=== PATIENT | female | born 1985 | race Caucasian/White ===

== ENCOUNTER 2018-12-04 01:02 | Inpatient (IN) | payer OTHER ==
[2018-12-04] VITALS (7 sets, daily range): BP systolic 112–121; BP diastolic 58–70
[~2018-12-04] VITALS: Ht 157.5 cm; Wt 78.5 kg
[2018-12-04] MEDS ORDERED: PRENTAB9 PO (01:11)
[2018-12-04] MEDS ORDERED: LR 1,000 ML IV SCH (01:44)
[2018-12-04] MEDS ORDERED: LACTATED RINGER'S 1000 ML IV STA (01:44)
[2018-12-04] MEDS ORDERED: OXYTOCIN 30 UNITS IN 0.9% NaCl 500ML IV BAG (J2590) As Ordered ONE ×2 (01:54→02:32)
[2018-12-04 02:05] LABS: HEMATOCRIT 32.6 % (36.0-47.0); HEMOGLOBIN 10.3 g/dl (12.0-15.5); MEAN CORPUSCULAR HEMOGLOBIN 26.1 pg (27.0-33.0); MEAN CORPUSCULAR HGB CONC 31.6 g/dl (32.0-36.5); MEAN CORPUSCULAR VOLUME 82.5 fl (80.0-96.0); PLATELET COUNT, AUTOMATED 255 10^3/uL (150-450); RED BLOOD COUNT 3.95 10^6/uL (4.00-5.40); WHITE BLOOD COUNT 18.5 10^3/uL (4.0-10.0)
[2018-12-04 02:20] LABS: EOSINOPHILS 1 % (0-5); LYMPHOCYTES 35 % (16-52); MONOCYTES 10 % (0-8); NEUTROPHILS 54 % (35-75); PLATELET CLUMPS SMALL AMT; PLATELET ESTIMATE NORMAL (NORMAL)
[2018-12-04 02:23] LABS: ANISOCYTOSIS 1+; HYPOCHROMASIA 1+
[2018-12-04] MEDS ORDERED: RHOGAM 300 MCG (1500 IU) INJ (J2790) IM SCH (02:45)
[2018-12-04] MEDS ORDERED: MEASLES,MUMPS,RUBELLA VACCINE INJ (MMR-II) (90707) SC SCH (02:45)
[2018-12-04] MEDS ORDERED: ACETAMINOPHEN TAB 650MG DOSE (2X325MG) PO PRN (02:45)
[2018-12-04] MEDS ORDERED: METHYLERGONOVINE MALEATE 0.2 MG TAB PO PRN (02:45)
[2018-12-04] MEDS ORDERED: DOCUSATE SODIUM 100 MG CAP PO PRN (02:45)
[2018-12-04] MEDS ORDERED: IBUPROFEN 600 MG TAB PO PRN (02:45)
--- NOTE | 2018-12-04 02:56 | NUR ---
[facility] Obstetrical History & Physical General Date of Admission December 04, 2018 at 0140 History of Present Illness Alex is a32 y/o at 40+5 via L/1TUS presenting with strong painful ctx and vaginal pressure. was uncomplicated. GBS NEG. Chief Complaint: Contractions, term Information Provided By: Patient Care Care: Good Care Dating Final EDC by: LMP, 1st trimester (US) Past Medical History Past Obstetrical History : Type of Delivery: Spontaneous Vaginal Del. Oct 2014 8lbs TEST [employer]ATION [employer]CHITECT History: No pertinent history Past Medical History Surgical History: laparoscopic ovarian cystectomy Family History Significant Family History: sister w/ hemophilia Social History Marital Status: Family situation: Spouse/partner home Psychosocial History: No pertinent psych hx; reports some PPD after first daughter * Smoker: non-smoker Alcohol: Denies Drugs: denies Abuse Violence Screening Have you been hit/kicked/slapp: No Have you been sexually assault: No Imunizations Tdap status: current Influenza Status: current Allergies Coded Allergies: NKDA Physical Examination Physical Examination GENERAL: Alert and oriented times three. VSS/AF CV: RRR PUL: CTAB ABDOMEN: Gravid and non-tender to touch; relaxed uterine resting tone EXTREMITIES: No edema. No clonus. FHR: 135 baseline; mod variability; + accelerations; occasional variable decelerations TOCO: q1-3, strong intensity via palp SCE: C/C w/ BBOW Laboratory Data pending in [facility] (not drawn until after delivery) Urine Culture: No Growth Pertinent Laboratoy Data Blood Type: AB+ RBC Antibody Screen: Negative HIV: Negative Hepatitis B: Negative Hepatitis C: Unknown Rapid Plasma Reagin: Nonreactive Rubella: Immune Varicella: Immune Chlamydia/Gonorrhea: Negative Group B Streptococcus: Negative Quad Screen Test: Declined Cystic Fibrosis: Declined 1hr: 137; 3hr: 89/158/114/80 Assessment/Plan 32 y/o at 40+5 via L/1TUS. Second stage labor; will delay active pushing for anesthesia consult. CAT I FHR w/ intermittent CAT II for variable de celerations. GBS NEG. I anticipate soon, may have anesthesia consult as desired. Pt has been counseled/consented for vaginal delivery and admission. She agrees with plan. Safe to proceed; room prepared and nursing staff present in anticipation for delivery.
[2018-12-04] MEDS: ACETAMINOPHEN 500 MG TAB PO PRN ×3 (02:57→23:34)
--- NOTE | 2018-12-04 03:03 | NUR ---
[facility] DELIVERY SUMMARY Called to BS at 0145 s/p SROM clear fluid and strong maternal bearing down efforts. FHR 135 baseline. Start active pushing and vertex delivered after two pushes direct OA with restitution to ROT. L anterior shoulder delivered followed by posterior shoulder and corpus with ease. NBN placed on mat ernal abdomen for bonding and initial assessments. Cord double clamped and cut by FOB following cessation of pulsation. Placenta delivered Nadja with gentle cord traction; placenta inspected and was found to be intact w/ central cord insertion. Oxytocin 20u adm via IV bolus for active management of the third stage. Vagina, cervix and perineum inspected for lacerations; bilateral labial lacerations present and repaired in usual fashion using 3-0 and 4-0 suture under local anesthesia. Excellent re-approximation and hemostasis following repair. Mom and babe stable and bonding when I left the room. : 0152, female PLACENTA: 0155 ANESTHESIA: None WEIGHT: 8lb 5oz (3720g) APGARS: 8/9 EBL: 300 COUNTS: correct x2
[2018-12-04] MEDS ORDERED: OXYTOCIN DRIP 30 UNITS in APPROPRIATE DILUENT 1 EA IV SCH ×5 (04:15→04:30)
[2018-12-04] MEDS ORDERED: LIDOCAINE 1% MDV 20ML VIAL As Ordered ONE (05:50)
--- NOTE | 2018-12-04 07:40 | NUR ---
[facility] Progress Note: S: Alex is a 32 y/o G2 now P2002 s/p precipitous vaginal delivery early this morning. She reports feeling tired this morning with slight vaginal pain. She reports diminishing lochia. Bonding well. Denies questions/concerns for CNM at this time. O: VSS/AF GEN: A&Ox3 CV: RRR PUL: CTAB BREAST: soft; no lactogenesis II, nipples intact ABD/UTERUS: NTTP; FF@U-3 LOCH: scant, rubra VAG: lacerations approximated with suture; min edema EXT: neg homans A/P: Alex is a 32 y/o G2 now P2002 s/p precipitous vaginal delivery early this am. Feeding/bonding well. Up ad kerry. Urinating. Karime regular diet. Will provide r outine pp care today and assistance as needed. PRN meds as needed and ice to perineum. I anticipate DC home tomorrow.
[2018-12-04] MEDS: IBUPROFEN 800 MG TAB PO PRN ×2 (10:24→20:03)
[2018-12-04] MEDS: PRENATAL VITAMINS CHEWABLE TABLET PO SCH (10:24)
[2018-12-04] MEDS: DIBUCAINE 1% OINTMENT 30GM TOP PRN ×2 (14:17→20:02)
[2018-12-05] MEDS: IBUPROFEN 800 MG TAB PO PRN (04:43)
[2018-12-05 05:55] VITALS: BP 106/57
[2018-12-05] MEDS ORDERED: IBUP80TA PO (07:30)
[2018-12-05] MEDS ORDERED: COLA100C5 PO (07:30)
--- NOTE | 2018-12-05 07:44 | IPNPDOC ---
Progress Note Date of Service: December 05, 2018 Day#: 1 Progress Note PPD1 SUBJECT: Alex is a 32yo [id number] s/p uncomplicated precipitous on 12/04, doing well day # 1. She has been ambulating, voiding spontaneously without issue and tolerating regular diet. Bottle feeding without issue. Reports lochia is like a normal period. No f/c/n/v/CP/SOB. OBJECTIVE: VITAL SIGNS: Within normal limits, afebrile. Alert and oriented times three. Abdomen: Fundus firm at U-2. Soft, NTTP. Extremities: no pain with palpation of calves ASSESSMENT: Alex is a 32yo [id number] s/p uncomplicated precipitous on 12/04, doing well day # 1. Vitals within normal limits, afebrile, hemodynamically stable with no evidence of infection. PLAN: 1. Discharge to home today. 2. Tylenol and Motrin for pain. 3. Routine PP visit in 6 weeks in clinic. 4. Discussed return precautions at length. Dr. Nikole Cisneros MD VS, I&O, 24H, [employer] Vital Signs/I&O Vital Signs Date Time Temp Pulse Resp B/P (MAP) Pulse Ox O2 Delivery O2 Flow Rate FiO2 12/05/18 05:55 98.2 80 17 106/57 (73) 12/04/18 05:00 99 Nikole Cisneros MD December 05, 2018 07:44
[2018-12-05] MEDS: PRENATAL VITAMINS CHEWABLE TABLET PO SCH (08:49)
== END 2018-12-05 11:30 | disposition home or self-care (01) | DRG 807 ==
LOC: M LDO 01:02 → M LDI 01:41 → M OBS 04:54
PROVIDERS: ADMIT Advanced Practice Midwife; ATTEND Advanced Practice Midwife
PROC: 10E0XZZ Delivery of Products of Conception, External Approach (ICD-10-PCS; principal; 2018-12-04)
PROC: 0HQ9XZZ Repair Perineum Skin, External Approach (ICD-10-PCS; 2018-12-04)
DX: O48.0 Post-term pregnancy (principal); Z37.0 Single live birth; Z3A.40 40 weeks gestation of pregnancy; O70.0 First degree perineal laceration during delivery